=== PATIENT | male | born 1935 | race Caucasian/White ===

== ENCOUNTER 2018-07-07 09:54 | Emergency (ER) | payer MEDICARE, OTHER ==
[~2018-07-07] VITALS: Ht 175.3 cm; Wt 93.6 kg
[~2018-07-07 09:54] MED LIST: ASPI-611 PO; ATOR20TA PO; CALC-1051 PO; CINN500C15 PO; CYAN100070 PO; ESCI20TA PO; HYDR-4383 PO; MELA3TAB PO; MULT-1179 PO; TRAZ-218 PO; ZES10T PO; [UNRECOGNIZED DRUG - OTHER]
[2018-07-07 10:05] VITALS: BP 117/72
[2018-07-07] MEDS ORDERED: PERM60CR19 TP (10:40)
== END 2018-07-07 10:50 | disposition home or self-care (01) ==
LOC: ER 09:55
DX: B86 Scabies (principal); I10 Essential (primary) hypertension; E78.00 Pure hypercholesterolemia, unspecified; Z86.73 Personal history of transient ischemic attack (TIA), and cerebral infarction without residual deficits; Z98.890 Other specified postprocedural states; Z88.8 Allergy status to other drugs, medicaments and biological substances; Z79.82 Long term (current) use of aspirin; Z79.899 Other long term (current) drug therapy
CPT/HCPCS: 99283